=== PATIENT | female | born 1965 | race Caucasian/White ===

== ENCOUNTER 2021-06-08 13:24 | Outpatient (CLI) | payer OTHER, SELFPAY ==
--- NOTE | ~2021-06-08 | XR_ITS ---
EXAMINATION: XR knee RT 3V DATE: 06/08/2021 13:55 INDICATION: Right knee pain. TECHNIQUE: 3 views of right knee were obtained. COMPARISON: None. FINDINGS: Bone alignment is normal. No fracture. There is mild tricompartmental osteoarthritis charac terized by tiny marginal osteophytes. No joint space narrowing. There is a small knee joint effusion. IMPRESSION: 1. Mild right knee osteoarthritis. 2. Small right knee joint effusion. Reviewed, dictated and finalized at location A.
== END 2021-06-08 13:25 | disposition home or self-care (01) ==
LOC: CHSIMG 13:30
PROVIDERS: PCP Family Medicine; Visit Provider Physician Assistant
DX: M25.561 Pain in right knee (principal); M17.11 Unilateral primary osteoarthritis, right knee
CPT/HCPCS: 73562

== ENCOUNTER 2022-01-10 13:48 | Outpatient (CLI) | payer OTHER, SELFPAY ==
--- NOTE | ~2022-01-10 | MM_ITS ---
EXAMINATION: MM screening [facility] BI w linda HISTORY: Screening TECHNIQUE: Craniocaudal and mediolateral oblique 3-D tomosynthesis images were obtained and synthetic 2-D images were generated. CAD analysis was submitted and interpreted. COMPARISON: No prior mammogram is available for comparison at this institution. BREAST PARENCHYMAL COMPOSITION: There are scattered areas of fibroglandular density. FINDINGS: There is no evidence of suspicious mass, calcification, or architectural distortion to sugg est malignancy in either breast. There has been no suspicious interval change. IMPRESSION: 1. No mammographic evidence of malignancy. 2. Recommend routine screening mammography in one year. BI-RADS Category 1: Negative Reviewed, dictated and finalized at location A.
== END 2022-01-10 13:49 | disposition home or self-care (01) ==
LOC: CHSIMG 13:49
PROVIDERS: PCP Physician Assistant; Visit Provider Physician Assistant
DX: Z12.31 Encounter for screening mammogram for malignant neoplasm of breast (principal)
CPT/HCPCS: 77063; 77067

== ENCOUNTER 2022-09-06 10:25 | Outpatient (CLI) | payer OTHER, SELFPAY | END 2022-09-06 10:26 | disposition home or self-care (01) | PROVIDERS: PCP Family Medicine; Visit Provider Physician Assistant | DX: Z12.2 Encounter for screening for malignant neoplasm of respiratory organs (principal); Z87.891 Personal history of nicotine dependence | CPT/HCPCS: 99199 ==

== ENCOUNTER 2022-09-13 13:56 | Outpatient (CLI) | payer OTHER, SELFPAY ==
--- NOTE | ~2022-09-13 | CT_ITS ---
EXAMINATION:CT lung screening DATE: 09/13/2022 14:14 INDICATION: Personal history of tobacco dependence. 44 pack year history. TECHNIQUE: Computed tomography (CT) of the chest was performed without intravenous contrast. Automate d exposure control and iterative reconstruction technique were employed. The dose-length product (DLP ) was 396.32 mGy-cm. COMPARISON: None. FINDINGS: There is mild atelectasis bilaterally. There is mild scarring in paraspinal right lower lob e. There is a 4 mm nodule in right lower lobe. There is a 3 mm nodule in right upper lobe. A calcifie d right lung nodule and calcified subcarinal lymph nodes are consistent with old granulomatous diseas e. No pleural effusion. The heart size is normal. No pericardial effusion. Calcifications in the sple en are consistent with old granulomatous disease. There is mild thoracic spondylosis. IMPRESSION: 1. Lung-RADS category 2: Benign appearance or behavior. Continue annual screening with noncontrast lo w-dose chest CT in 12 months. Reviewed, dictated and finalized at location A. 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 Lung-RADS category 2: Benign appearance or behavior. Continue annual screeni ng with noncontrast low-dose chest CT in 12 months.
== END 2022-09-13 13:57 | disposition home or self-care (01) ==
LOC: CHSIMG 13:57
PROVIDERS: PCP Physician Assistant; Visit Provider Physician Assistant
DX: Z12.2 Encounter for screening for malignant neoplasm of respiratory organs (principal); Z87.891 Personal history of nicotine dependence
CPT/HCPCS: 71271